=== PATIENT | male | born 1970 | race African-American/Black ===

== ENCOUNTER 2019-08-17 01:34 | Emergency (ER) | payer SELFPAY ==
[~2019-08-17] VITALS: Ht 170.2 cm; Wt 90.0 kg
[2019-08-17 01:42] VITALS: Ht 170.2 cm; Wt 90.0 kg
[2019-08-17] MEDS ORDERED: OMNICEF300 MG PO (03:05)
[2019-08-17 03:27] VITALS: BP 136/94
== END 2019-08-17 03:28 | disposition home or self-care (01) ==
LOC: D.ER 01:34
DX: S01.81XA Laceration without foreign body of other part of head, initial encounter (principal); W22.8XXA Striking against or struck by other objects, initial encounter; Y93.9 Activity, unspecified; Y92.9 Unspecified place or not applicable

== ENCOUNTER 2019-08-27 10:59 | Emergency (ER) | payer SELFPAY ==
[~2019-08-27] VITALS: Ht 170.2 cm; Wt 75.0 kg
[~2019-08-27 10:59] MED LIST: OMNICEF300 MG PO
[2019-08-27 11:03] VITALS: Ht 170.2 cm; Wt 75.0 kg
[2019-08-27 11:44] VITALS: BP 142/86
== END 2019-08-27 11:45 | disposition home or self-care (01) ==
LOC: D.ER 10:59
DX: Z48.02 Encounter for removal of sutures (principal)

== ENCOUNTER 2019-09-26 11:51 | Emergency (ER) | payer SELFPAY ==
[2019-09-26 12:08] VITALS: BP 155/96; Ht 170.2 cm
== END 2019-09-26 14:46 | disposition home or self-care (01) ==
LOC: D.ER 11:51
DX: S01.81XD Laceration without foreign body of other part of head, subsequent encounter (principal); R22.0 Localized swelling, mass and lump, head